=== PATIENT | female | born 1985 | race Caucasian/White ===

== ENCOUNTER 2024-10-12 11:48 | Inpatient (IN) | payer OTHER ==
[2024-10-12 12:33] VITALS: BMI 21.2
[2024-10-12] MEDS ORDERED: methaDONE HCL 10 MG TABLET (FOR DETOX USE ONLY) PO PRN (13:04)
[2024-10-12] MEDS ORDERED: NALOXONE (NARCAN) HCL 4 MG/0.1 ML SPRAY NS PRN (13:07)
[2024-10-12] MEDS ORDERED: BISMUTH SUBSALICYLATE 262 MG/15 ML BTL PO PRN (13:07)
[2024-10-12] MEDS ORDERED: BENZONATATE 200 MG CAPSULE PO PRN (13:07)
[2024-10-12] MEDS ORDERED: IBUPROFEN 400 MG TABLET (FP) PO PRN (13:07)
[2024-10-12] MEDS ORDERED: BENZOCAINE/MENTHOL (CHLORASEPTIC ) LOZENGE MM PRN (13:07)
[2024-10-12] MEDS ORDERED: DICYCLOMINE HCL 10 MG CAPSULE PO PRN (13:07)
[2024-10-12] MEDS ORDERED: P-EPHED 60MG/TRIPROLIDI 2.5MG TABLET PO PRN (13:07)
[2024-10-12] MEDS ORDERED: ONDANSETRON *ODT* 4 MG TABLET SL PRN (13:07)
[2024-10-12] MEDS ORDERED: LOPERAMIDE HCL 2 MG CAPSULE PO PRN (13:07)
[2024-10-12] MEDS ORDERED: MAG HYDROX/AL HYDROX/SIMETH 30 ML UNIT-DOSE CUP PO PRN (13:07)
[2024-10-12] MEDS ORDERED: ACETAMINOPHEN 325 MG TABLET (FP) PO PRN (13:07)
[2024-10-12] MEDS ORDERED: MAGNESIUM HYDROX 2400MG/30ML ORAL SUSPENSION 30 ML CUP PO PRN (13:07)
[2024-10-12] MEDS ORDERED: POLYETHYLENE GLYCOL (HEALTHYLAX) 3350 17 GM PACKET PO PRN (13:07)
[2024-10-12] MEDS ORDERED: guaiFENesin 600 MG TABLET.ER (FP) PO PRN (13:07)
[2024-10-12] MEDS ORDERED: methaDONE HCL 10 MG TABLET (FOR DETOX USE ONLY) ONE (15:15)
[2024-10-12] MEDS: methaDONE HCL 10 MG TABLET (FOR DETOX USE ONLY) PO ONE (15:32)
[2024-10-12] MEDS: diazePAM 5 MG TABLET PO PRN (22:44)
[2024-10-12] MEDS: THIAMINE 100 MG TABLET PO SCH (22:45)
[2024-10-12] MEDS: BUPRENORPHINE/NALOXONE 0.5 MG/0.125 MG FILM SL ONE (22:45)
[2024-10-12] MEDS: MELATONIN 5 MG TABLETS PO SCH (22:45)
[2024-10-13] MEDS: BUPRENORPHINE/NALOXONE 0.5 MG/0.125 MG FILM SL SCH (09:44)
[2024-10-13] MEDS: PRENATAL VITAMINS W/ FOLIC ACID TABLET (FP) PO SCH (09:45)
[2024-10-13 10:10] LABS: HEMATOCRIT 32.7 % (32.4-45.2); HEMOGLOBIN 10.9 GM/dL (10.7-15.3); MCH 32.1 pg (25.7-33.7); MCHC 33.4 g/dl (32.0-36.0); MEAN PLT VOLUME 7.5 fl (7.5-11.1); PLATELET COUNT 307 10^3/uL (134-434); RDW 12.8 % (11.6-15.6); WHITE BLOOD COUNT 8.4 K/mm3 (4.0-10.0)
[2024-10-13] MEDS: NICOTINE POLACRILEX 2 MG GUM BUC PRN (11:31)
[2024-10-13 13:31] LABS: POTASSIUM 4.3 mmol/L (3.5-5.1)
[2024-10-13 13:34] LABS: CALCIUM 8.5 mg/dL (8.5-10.1)
[2024-10-13 13:35] LABS: BLOOD UREA NITROGEN 25.5 mg/dL (7-18)
[2024-10-13 13:38] LABS: CREATININE 0.8 mg/dL (0.55-1.3)
[2024-10-13 13:40] LABS: BILIRUBIN,TOTAL 0.2 mg/dL (0.2-1); TOT PROT 5.8 g/dl (6.4-8.2)
[2024-10-13] MEDS: NICOTINE POLACRILEX 2 MG LOZENGE BC PRN (16:57)
[2024-10-13] MEDS: SUVOREXANT 10 MG TABLET PO PRN (22:16)
[2024-10-14] MEDS: methaDONE HCL 10 MG TABLET (FOR DETOX USE ONLY) PO ONE (10:17)
[2024-10-14] MEDS: BUPRENORPHINE/NALOXONE 2 MG/0.5 MG FILM PACKET SL SCH (10:17)
[2024-10-14] MEDS: ASPIRIN 81 MG CHEWABLE TABLETS PO SCH (11:12)
[2024-10-14] MEDS: INDOMETHACIN 50 MG CAPSULE PO SCH (11:47)
[2024-10-14] MEDS: METHOCARBAMOL 500 MG TABLET PO PRN (17:01)
[2024-10-14] MEDS: IBUPROFEN 600 MG TABLET (FP) PO PRN (17:01)
[2024-10-15] MEDS: BUPRENORPHINE/NALOXONE 4 MG/1 MG FILM PACKET SL SCH (09:47)
[2024-10-15] MEDS: PREGABALIN 100 MG CAPSULE PO SCH (09:50)
[2024-10-16] MEDS: NALOXONE (NYS OPIOID OVERDOSE PROGRAM) 4 MG/0.1 ML SPRAY NS SCH (08:50)
[2024-10-16] MEDS: BUPRENORPHINE/NALOXONE 8 MG/2 MG FILM PACKET SL SCH (09:54)
[2024-10-16] MEDS: methaDONE HCL 10 MG TABLET (FOR DETOX USE ONLY) PO ONE (09:57)
[2024-10-16] MEDS: levETIRAcetam 500 MG TABLET (FP) PO ONE (14:06)
[2024-10-16 18:39] VITALS: RESP 16
[2024-10-16] MEDS ORDERED: levETIRAcetam 500 MG TABLET (FP) PO SCH (22:00)
[2024-10-16] MEDS: clonazePAM 0.5 MG ODT TABLETS SL PRN (22:08)
[2024-10-17 09:03] VITALS: BP 110/64; PULSE 77; TEMP 98.6
[2024-10-17] MEDS: BUPRENORPHINE/NALOXONE 8 MG/2 MG FILM PACKET SL SCH (09:27)
== END 2024-10-17 09:35 | disposition home or self-care (01) | DRG 773 ==
LOC: YASAS 11:48 → Y6N 15:10
PROVIDERS: ADMIT Allergy & Immunology; ATTEND Allergy & Immunology
PROC: HZ2ZZZZ Detoxification Services for Substance Abuse Treatment (ICD-10-PCS; principal; 2024-10-12)
DX: F11.23 Opioid dependence with withdrawal (principal); F14.20 Cocaine dependence, uncomplicated; F17.210 Nicotine dependence, cigarettes, uncomplicated; F19.282 Other psychoactive substance dependence with psychoactive substance-induced sleep disorder; F19.280 Other psychoactive substance dependence with psychoactive substance-induced anxiety disorder; F41.9 Anxiety disorder, unspecified; F90.9 Attention-deficit hyperactivity disorder, unspecified type; M79.7 Fibromyalgia; M79.89 Other specified soft tissue disorders; R94.31 Abnormal electrocardiogram [ECG] [EKG]
CPT/HCPCS: 36415; 80053; 80305; 80307; 81025; 85027; 86780; 93005; 93010

== ENCOUNTER 2024-10-14 11:35 | Emergency (ER) | payer OTHER ==
[2024-10-14 12:04] VITALS: BP 120/49; PULSE 88; RESP 18; TEMP 97.7; BMI 21.2
[2024-10-14] MEDS ORDERED: ACETAMINOPHEN 325 MG TABLET (FP) ONE (12:25)
[2024-10-14] MEDS: ACETAMINOPHEN 500 MG TABLET (FP) PO ONE (12:32)
== END 2024-10-14 15:12 | disposition home or self-care (01) ==
LOC: JER 11:35
DX: R60.0 Localized edema (principal); M79.89 Other specified soft tissue disorders
CPT/HCPCS: 73562-TC-LT-FY; 73590-TC-LT-FY; 84703; 93971-TC; 99283-25